=== PATIENT | female | born 1940 | race Caucasian/White ===

== ENCOUNTER 2021-08-19 15:20 | Emergency (ER) | payer BC, MEDICARE | END 2021-08-19 17:25 | disposition home or self-care (01) | LOC: ER1 15:20 | DX: Z71.1 Person with feared health complaint in whom no diagnosis is made (principal); I10 Essential (primary) hypertension | CPT/HCPCS: 99283 ==

== ENCOUNTER → 2022-03-23 | Outpatient (CLI) | payer MEDICARE, BC | LOC: EXRD 14:58 | DX: M81.0 Age-related osteoporosis without current pathological fracture (principal) | CPT/HCPCS: 77080 ==